=== PATIENT | male | born 1930 | race Caucasian/White ===

== ENCOUNTER → 2018-04-03 | Day surgery (SDC) | payer MEDICARE ==
[~2018-04-03] VITALS: Ht 177.8 cm; Wt 79.8 kg
[~2018-04-03] MED LIST: AMLO5TAB2 PO; BUPIVACAINE HCL PF 0.5% 30 ML VIAL ONE; CHLORHEXIDINE GLUCONATE 2 % 1 PACK (2 CLOTHS) TOPICAL PRN; GENTAMICIN SULFATE 80 MG/2 ML VIAL ONE; ISOS30TA3 PO; LACTATED RINGER'S 1000 ML IV PRN; LIDOCAINE HCL 1% PF 5 ML SYRINGE OTHER ONE; LORA1TAB12 PO; METO50TA PO; METOPROLOL TARTRATE 25 MG TAB PO PRN; ONDANSETRON HCL 4 MG/2 ML VIAL IV ONE; POVIDONE IODINE 5% (ANTISEPSIS KIT) 4 APPLICATIONS EACH NARE PRN; PROPOFOL 200 MG/20 ML AMP IV ONE; SIMV80TA PO; SODIUM CHLORID 0.9% 500 ML IV PRN; TYLE325T PO; VITA1000 PO; ZOLP10TA3 PO; [UNRECOGNIZED DRUG - CODE] PO; ceFAZolin 1,000 MG/NS 100 ML IV SCH; ePHEDrine/NS 25 MG/5 ML SYRINGE IV ONE
[2018-04-03 07:53] LABS: AUTOMATED NEUTROPHIL # 4.4 TH/MM3 (1.8-7.7); BASOPHIL # 0.1 TH/MM3 (0-0.2); BASOPHIL % 0.8 % (0.0-2.0); EOSINOPHIL # 0.4 TH/MM3 (0-0.4); EOSINOPHIL % 5.2 % (0.0-4.0); HEMATOCRIT 36.2 % (39.0-51.0); HEMOGLOBIN 12.1 GM/DL (13.0-17.0); LYMPH % 20.9 % (9.0-44.0); LYMPHOCYTE # 1.6 TH/MM3 (1.0-4.8); MEAN CELL VOLUME 84.6 FL (80.0-100.0); MEAN CORPUSCULAR HEMOGLOBIN 28.2 PG (27.0-34.0); MEAN CORPUSCULAR HGB CONC 33.4 % (32.0-36.0); MEAN PLATELET VOLUME 7.1 FL (7.0-11.0); MONO % 13.5 % (0.0-8.0); NEUT % 59.6 % (16.0-70.0); PLATELET COUNT 273 TH/MM3 (150-450); RED BLOOD COUNT 4.28 MIL/MM3 (4.50-5.90); RED CELL DISTRIBUTION WIDTH 14.8 % (11.6-17.2); WHITE BLOOD COUNT 7.4 TH/MM3 (4.0-11.0)
[2018-04-03 08:08] LABS: BICARBONATE 25.8 MEQ/L (21.0-32.0); CALCIUM 9.7 MG/DL (8.5-10.1); CREATININE 1.72 MG/DL (0.60-1.30)
--- NOTE | 2018-04-03 10:07 | PD.OP ---
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 Decision made for the patient undergo cystoscopy with suprapubic tube insertion. Risks and benefits were discussed with both patient and his daughter in the office this week and they are both willing to proceed. Patient was brought to the operating room and identified by myself as Juma Raza. He was placed in the dorsal lithotomy position, prepped and draped in sterile fashion, received preprocedure antibiotics and general LMA anesthesia was administered. 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 Radiation changes were noted throughout the bladder. Attempt was made to place the lousy retractor but this was unsuccessful as it was too large to go through his contracted bladder neck. Therefore a 2 cm incision was made 2 fingerbreadths above the pubic symphysis using a 15 blade. Bovie cautery was then used to get down to the area of the fascia. The Robin suprapubic tube harpoon was then used to place up against the fascia and under visualization using the flexible cystoscope I could see the tip of the harpoon end of the bladder. This was then advanced and then the inner sheath was removed and a 16 German Story catheter was then inserted through the sheath. The balloon of the Story catheter was then filled with 5 cc as a bladder capacity was small. A 2-0 silk suture was then used to anchor the suprapubic tube in place and then dressings were applied over the wound site. He tolerated the procedure well and was awoken and transferred recovery room in stable condition. Calixto Stearns DO April 03, 2018 10:07
[2018-04-03 11:45] VITALS: BP 141/62; PULSE 56; RESP 18; TEMP 97.5; O2SAT 94
--- NOTE | 2018-04-03 20:27 | EKG ---
Date Performed: 04/03/2018 Time Performed: 07:40:31 PTAGE: 87 years EKG: SINUS BRADYCARDIA WITH FIRST DEGREE AV BLOCK WITH OCCASIONAL SUPRAVENTRICULAR PREMATURE COM PLEXES RIGHT BUNDLE BRANCH BLOCK LEFT ANTERIOR FASCICULAR BLOCK VOLTAGE CRITERIA FOR LVH POSSIBLE SEP RADHA MYOCARDIAL INFARCTION , PROBABLY OLD ABNORMAL ECG Since the PREVIOUS TRACING , no significant change noted PREVIOUS TRACIN05/26/2015 12.02 DOCTOR: Miky España Interpretating Date/Time 04/03/2018 16:48:16
== END | disposition home or self-care (01) ==
LOC: HSDC 07:03
PROVIDERS: ATTEND Urology
DX: N31.2 Flaccid neuropathic bladder, not elsewhere classified (principal); Z85.46 Personal history of malignant neoplasm of prostate; Z92.3 Personal history of irradiation; Z01.810 Encounter for preprocedural cardiovascular examination; Z01.818 Encounter for other preprocedural examination
CPT/HCPCS: 00800; 51102; 80048; 85025; 93005; J0690; J1580; J3010; J7120; J2405